=== PATIENT | male | born 1980 | race Caucasian/White ===

== ENCOUNTER 2019-04-02 13:59 | Inpatient (IN) ==
[2019-04-02] MEDS ORDERED: TYLENOL PO ONE (14:28)
[2019-04-02] MEDS ORDERED: ZOFRAN ODT PO ONE (14:28)
[2019-04-02] MEDS ORDERED: MOTRIN PO ONE (14:28)
[2019-04-02 14:37] LABS: INFLUENZA A NEGATIVE (NEGATIVE); INFLUENZA B NEGATIVE (NEGATIVE)
--- NOTE | 2019-04-02 14:52 | PROVIDER DOCUMENTATION ---
HPI-General Adult - General Chief Complaint: Fever Stated Complaint: FEVER Time Seen by Provider: 04/02/19 14:19 Source: patient Allergies/Adverse Reactions: Patient Allergies Allergy/AdvReac Type Severity Reaction Status Date / Time No Known Allergies Allergy Verified 04/02/19 14:05 Home Medications: Home Medication List Medication Instructions Recorded Confirmed Last Taken Type Sertraline [Zoloft] 50 mg PO DAILY 04/02/19 04/02/19 Unknown History - History of Present Illness -Gen Adult Nature of Presenting Problems: Patient is a 38 yowm who complains of fever and chills that began this morning, as well as a sore throat and productive cough with clear sputum x 1 month. He has also had n/v/d. States he was seen here recently for etoh detox/withdrawal and prescribed Librium. States he took his last dose yesterday. Also recently treated for right otitis media, states he no longer has ear pain. Denies any other complaints. Pt is non-toxic in appearance. Review of Systems - Adult - REVIEW OF SYSTEMS - ADULT Constitutional: reports: see HPI, chills, fever Eyes: reports: no symptoms reported Ears, Nose, Mouth & Throat: reports: see HPI Cardiovascular: reports: no symptoms reported Respiratory: reports: see HPI Gastrointestinal: reports: see HPI Genitourinary: reports: no symptoms reported Musculoskeletal: reports: no symptoms reported Integumentary: reports: no symptoms reported Neurological: reports: no symptoms reported Psychiatric: reports: no symptoms reported Endocrine: reports: no symptoms reported Hematologic/Lymphatic: reports: no symptoms reported Allergic/Immunologic: reports: no symptoms reported All Other Systems: Reviewed and Negative Past History - Adult - PAST MEDICAL HISTORY-ADULT Review of Records: reports: Nursing Assessment Review, Medications Reviewed Major Childhood Illnesses: reports: denies history Cardiovascular: reports: denies history Respiratory: reports: denies history Gastrointestinal: reports: liver disease, pancreatitis Obstetrical/Gynecological: reports: denies history Genitourinary: reports: denies history Musculoskeletal: reports: denies history Neurological: reports: denies history Psychiatric: reports: depression Endocrine/Immune: reports: denies history Other Conditions: reports: denies history - PRIOR SURGERIES/PROCEDURES Surgical/Procedure History: reports: recent surgery - PRIOR HOSPITALIZATIONS Prior Hospitalizations: reports: for similar symptoms - IMMUNIZATION STATUS Childhood Immunizations: See Nurse Assessment Flu Vaccine: See Nurse Assessment - FAMILY HISTORY Family History: reviewed, not pertinent - SOCIAL HISTORY Smoking: cigarettes, greater than 1 pack/day Physical Exam-General - PHYSICAL EXAM-ADULT Initial Vital Signs Reviewed: Yes - CONSTITUTIONAL General Appearance: alert, no apparent distress. negative: lethargic, slow to respond - EYES Eyes: PERRL/EOMI, pink conjunctivae. negative: sclera injected, scleral icterus, sunken eyes - HEAD, EARS, NOSE, MOUTH & THROAT HENMT: normocephalic/atraumatic, moist mucous membranes, normal ENT inspection, TMs normal, pharyngeal erythema. negative: tonsillar exudate - NECK Neck: non-tender, full range of motion, supple, normal inspection, lymphadenopathy (bilateral anterior cervical- mild) - RESPIRATORY Respiratory: chest non-tender, lungs clear, normal breath sounds, no pleuratic chest pain, no respiratory distress, no accessory muscle use - CARDIOVASCULAR Cardiovascular: normal peripheral pulses, regular rate, rhythm, no edema, no gallop, no murmur, tachycardia - GASTROINTESTINAL (ABDOMEN) Abdominal Exam: normal bowel sounds, non tender, soft. negative: distended, guarding, rigid, rebound, tenderness, hernia, mass - MUSCULOSKELETAL Back Exam: normal inspection, no CVA tenderness Extremity: normal range of motion, non-tender, normal gait, normal inspection - SKIN Integumentary: normal color, warm/dry. negative: cyanosis, diaphoresis, jaundice, mottled, pallor - NEUROLOGIC Neurologic: grossly normal, no motor/sensory deficits - PSYCHIATRIC Psych/Mental Status: normal mood/affect, normal thought content, normal thought process, oriented x 3 Progress - PLAN OF CARE/RESULTS Progress/Plan/Lab Results: Vital Signs - 8 hr 04/02/19 14:01 Temperature 102.3 F H Pulse Rate 144 H Respiratory Rate 18 Blood Pressure 128/84 O2 Sat by Pulse Oximetry 97 Laboratory Results - last 24 hr 04/02/19 04/02/19 14:08 14:08 Influenza A (Rapid) NEGATIVE Influenza B (Rapid) NEGATIVE Group A Strep Rapid NEGATIVE Orders Category Date Time Status CHEST-2 VIEWS [RAD] Stat Exams 04/02/19 14:40 Ordered BLOOD CULTURE [BLDCUL] Stat Lab 04/02/19 14:40 Uncollected CBC WITH DIFF [HEME] Stat Lab 04/02/19 14:39 Ordered COMPREHENSIVE METABOLIC PANEL [CHEM] Stat Lab 04/02/19 14:[address] Stat Lab 04/02/19 14:[address] Stat Lab 04/02/19 14:08 Completed UA NIMS W/REFLEX CULT [URINALYSIS] Stat Lab 04/02/19 14:40 Uncollected 0.9% Sodium Chloride Inj [Ns] 1,000 ml Med 04/02/19 14:40 Active IV 999 mls/hr Acetaminophen [Tylenol] Med 04/02/19 14:28 Discontinued 1,000 mg PO NOW ONE Ibuprofen [Motrin] Med 04/02/19 14:28 Discontinued 800 mg PO NOW ONE Ondansetron Odt [Zofran Odt] Med 04/02/19 14:28 Discontinued 4 mg PO NOW ONE EKG [EKG] Stat Ther 04/02/19 14:40 Ordered Result Diagrams: 04/02/19 14:57 04/02/19 14:57 - REASSESSMENT Reassessment #1 Time Reassessed: 16:32 Status: other (Admitting HPS paged.) Reassessment #2 Time Reassessed: 16:37 Status: other (HR 120 after 2L IVF. Pt in agreement with admission plan.) - EKG 1 Time of EKG reading by physician:: 14:55 EKG Read and Signed by:: Maryana Franklin EKG Interpretation (*Must complete 3 of following elements*): Abnormal Rate: 130 Rhythm: sinus tachycardia QRS: normal ST Wave: normal - XRAY 1 XRAY Study: Chest ([facility] - [address] [facility] [address] [place] [id number] [facility] - [address] [id number] Department of Imaging Patient: NAVA LINDSEYDM Date: 04/02/19MR#: [id number] : 1980ADM Status: REG [facility]#: [id number] Age/Sex: 38/MRoom/Bed: Loc: P.ED Ordering Physician: Alexei Neal Family Physician: None,PCP Reason for Procedure: cough, fever, tachycardia Signed EXAM: CHEST-2 VIEWS HISTORY: cough, fever, tachycardia TECHNIQUE: Two views COMPARISON: 09/12/2016 FINDINGS: The lungs are well expanded. The heart is not enlarged. The vessels are not distended. There are no infiltrates. No pleural effusions. IMPRESSION: No pneumonia Electronically signed by Yair Gonzalez 04/02/2019 3:0 8 PM 04/02/19 1508 Interpreting Physician: Yair Gonzalez MD Dictated Date/Time: 04/02/19 1508 cc: Alexei Neal; None,PCP) - CONSULTS/PCP/HOSPITALIST Notification #1 *Consult/PCP/Hospitalist*: Dr. Pierson Time Discussed: 16:36 Reason/Comments: admission- leukocytosis,URI,n/v/d Consult Disposition: Admit Departure - Departure Date of Disposition Decision: 04/02/19 Time of Disposition Decision: 16:36 DIAGNOSIS: Nausea and vomiting Qualifiers: Vomiting type: unspecified Vomiting Intractability: non-intractable Qualified Code(s): R11.2 - Nausea with vomiting, unspecified Leukocytosis Qualifiers: Leukocytosis type: unspecified Qualified Code(s): D72.829 - Elevated white blood cell count, unspecified URI (upper respiratory infection) Qualifiers: URI type: unspecified URI Qualified Code(s): J06.9 - Acute upper respiratory infection, unspecified Disposition: ADMITTED INPATIENT 09 Certified Medical Emergency: Emergent Condition: Stable Referrals and Follow-Ups: None,PCP [Primary Care Provider] - - Critical Care Note This patient required my direct & personal management of CC.: No Attestation - Physician/ MARIA INES Attestation Patient care was provided by Advanced Practice Provider:: Yes Advanced Practice Provider:: Alexei Neal Advanced Practice Provider documentation review:: The Mid-level provider documentation, treatment plan and medical decision making was reviewed by the physician who agrees with all treatment and medical decision making by the [facility]. The physician spent face to face time with patient:: No Advanced Practice Provider documentation review:: Supervising physician onsite and consulted in the evaluation and care of this patient. The physician did not have a face to face encounter with the patient.
[2019-04-02 15:08] LABS: BASO# 0.01 X1000 (0.0-0.2); EOS# 0.01 X1000 (0.0-0.7); HEMATOCRIT 34.7 % (42.0-52.0); HEMOGLOBIN 11.3 g/dL (14.0-18.0); IMM GRAN# 0.07 X1000 (0.0-0.04); IMM GRAN% 0.3 % (0.0-0.5); LYMPH# 0.77 X1000 (1.2-3.4); LYMPH% 3.7 % (20.5-51.1); MCH 33.7 PG (27-31); MCHC 32.6 g/dL (33-37); MCV 103.6 FL (81-99); MONO# 2.22 X1000 (0.11-0.59); MONO% 10.5 % (1.7-9.3); MPV 8.8 FL (7.4-10.4); NEUT# 17.98 X1000 (1.4-6.5); NEUT% 85.5 % (42.2-75.2); PLT 332 X1000 (130-400); RBC 3.35 XMIL (4.7-6.1); RDW 12.9 % (11.5-14.5); WBC 21.06 X1000 (4.8-10.8)
--- NOTE | 2019-04-02 15:10 | Diag Imaging Result Doc PS360 ---
EXAM: CHEST-2 VIEWS HISTORY: cough, fever, tachycardia TECHNIQUE: Two views COMPARISON: 09/12/2016 FINDINGS: The lungs are well expanded. The heart is not enlarged. The vessels are not distended. There are no infiltrates. No pleural effusions. IMPRESSION: No pneumonia Electronically signed by Yair Gonzalez 04/02/2019 3:08 PM
[2019-04-02] MEDS ORDERED: NS 1,000 ML IV ONE (15:15)
--- NOTE | 2019-04-02 15:17 | EKG Report ---
Test Performed on : 04/02/2019 2:53:06 PM Test Reason : tachycardia Blood Pressure : / mmHG Vent. Rate : 130 BPM Atrial Rate : 130 BPM P-R Int : 138 ms QRS Dur : 068 ms QT Int : 276 ms P-R-T Axes : 033 025 014 degrees QTc Int : 406 ms Sinus tachycardia. Otherwise normal ECG When compared with ECG of 12-SEP-2016 05:43, Vent. rate has increased BY 60 BPM Non-specific change in ST segment in Anterior leads Nonspecific T wave abnormality now evident in Inferior leads T wave amplitude has decreased in Anterolateral leads Unconfirmed Result
[2019-04-02 15:19] LABS: URINE SOURCE CLEAN CATCH
[2019-04-02] MEDS: NS 1,000 ML IV ONE (15:26)
[2019-04-02 15:27] LABS: BILIRUBIN URINE NEGATIVE (NEGATIVE); BLOOD URINE NEGATIVE (NEGATIVE); COLOR YELLOW; GLUCOSE URINE NEGATIVE (NEGATIVE); KETONE URINE TRACE mg/dL (NEGATIVE); LEUKOCYTES URINE NEGATIVE (NEGATIVE); NITRITE URINE NEGATIVE (NEGATIVE); PROTEIN URINE 30 mg/dL (NEGATIVE); SP GRAVITY URINE 1.027; TURBIDITY URINE CLEAR (CLEAR); UROBILINOGEN URINE 3 mg/dL (NORMAL)
[2019-04-02 15:29] LABS: UR EPITHELIAL CELLS <10 /HPF (<10); URINE BACTERIA NEGATIVE /HPF; URINE RBC <10 /HPF (<10); URINE WBC <10 /HPF (<10)
[2019-04-02 15:35] LABS: ESTIMATED GFR > 60
[2019-04-02 15:39] LABS: UR AMPHETAMINES QUAL NONE DETECTED (NONE DETECT); UR BARBITUATES QUAL NONE DETECTED (NONE DETECT); UR BENZODIAZEPIN QUAL PRESUMPTIVE POSITIVE (NONE DETECT); UR CANNABINOIDS QUAL NONE DETECTED (NONE DETECT); UR COCAINE QUAL NONE DETECTED (NONE DETECT); UR METHADONE QUAL NONE DETECTED (NONE DETECT); UR METHAMPHETAMINE QUAL NONE DETECTED (NONE DETECT); UR OPIATES QUAL NONE DETECTED (NONE DETECT); UR OXYCODONE QUAL NONE DETECTED (NONE DETECT); UR PCP QUAL NONE DETECTED (NONE DETECT); UR PROPOXYPHENE QUAL NONE DETECTED (NONE DETECT); UR TCA QUAL NONE DETECTED (NONE DETECT)
[2019-04-02 15:41] LABS: INR 0.9; PROTIME 12.6 Seconds (11.0-16.0)
[2019-04-02 15:45] LABS: AGAP 15; ALBUMIN 4.6 g/dL (3.5-5.0); ALKALINE PHOSPHATASE 161 U/L (32-122); BUN 8 mg/dL (8-22); CALCIUM 10.1 mg/dL (8.8-10.2); CHLORIDE 94 mmol/L (98-107); COSMO 261; CREATININE 0.6 mg/dL (0.7-1.2); GLUCOSE 132 mg/dL (70-104); GOT 155 U/L (10-34); GPT 123 U/L (10-44); LIPASE 6 U/L (13-60); POTASSIUM 3.9 mmol/L (3.5-5.1); SODIUM 130 mmol/L (136-145); TCO2 21 mmol/L (25-35)
[2019-04-02 16:07] LABS: MAGNESIUM 1.4 mg/dL (1.5-2.7)
[2019-04-02] MEDS ORDERED: NICODERM PATCH TD ONE (16:32)
[2019-04-02] MEDS ORDERED: ROCEPHIN 1 GM in NS 50 ML IV ONE (16:32)
[2019-04-02] MEDS: NS 1,000 ML IV SCH (17:57)
[2019-04-02] MEDS ORDERED: ZOFRAN IV PRN (18:16)
[2019-04-02] MEDS ORDERED: MAGNESIUM SULFATE 2 GM/S.W.I. 2 GM/50 ML IVPB IV ONE (18:16)
[2019-04-02] MEDS: TYLENOL PO PRN (18:56)
--- NOTE | 2019-04-02 19:00 | HISTORY AND PHYSICAL ---
PRIMARY CARE PHYSICIAN: Listed as none. CHIEF COMPLAINT: Of fever, chills, sore throat, body aches, productive cough and nausea, vomiting, diarrhea that began acutely onset this morning and progressively worsened throughout the day. HISTORY OF PRESENTING ILLNESS: This is a 38-year-old male who presents to [facility] ER with complaints of a subjective fever, chills, sore throat, body aches, productive cough, nausea, vomiting, and diarrhea that began acutely this morning and has progressively worsened. States he was recently treated for ETOH withdrawal as he quit drinking on . He was seen in the ER here at [facility] and placed on a Librium taper and has completed that. Prior to that, he was a half a gallon a day drinker of vodka. He also states that he was recently treated for a right otitis media. Took all the antibiotics for that and has not had any further problems from his ear. When he arrived, he had a fever of 102.3, heart rate of 144, white blood cell count of 21.06. Sodium was 130. AST of 155, ALT 123, alkaline phosphatase 161. Plasma lactate was normal at 1.8. Influenza A and B and group A strep were all negative. His chest x-ray showed no pneumonia. Urinalysis was also negative, but he will be admitted for further evaluation and treatment. We are going to also check a CT of the abdomen and pelvis and thorax now. PAST MEDICAL HISTORY: Of pancreatitis, liver disease, anxiety, ETOH abuse. PAST SURGICAL HISTORY: None. FAMILY HISTORY: Reviewed and noncontributory. SOCIAL HISTORY: He currently lives alone. He smokes a pack of cigarettes a day and has done so for the past 10+ years. He was a half a gallon a day drinker of vodka up until , which was about 10 days ago at this point. He was seen in the ER for EtOH withdrawal and given Librium, completed that and has had no further issues with withdrawal and denied any illicit drug use. ALLERGIES: He has no known drug allergies. HOME MEDICATIONS: Zoloft 50 mg p.o. daily. LABORATORY DATA: Showed a white blood cell count of 21.06, hemoglobin 11.3, hematocrit 34.7, platelets 332,000. PT and INR of 12.6 and 0.90. Sodium 130, potassium 3.9, chloride 94, CO2 21, BUN of 8, creatinine 0.6, glucose 132, magnesium 1.4, AST 155, ALT 123, alkaline phosphatase 161. Plasma lactate was 1.8. Urinalysis was negative. Urine drug screen was presumptive positive for benzodiazepines. Influenza A and B and group A strep were all negative. Chest x-ray showed no pneumonia. EKG showed sinus tachycardia at 130. REVIEW OF SYSTEMS: He had a subjective fever, chills, sore throat, body aches, productive cough, nausea, vomiting, and diarrhea. Denied any chest pain, shortness of breath, abdominal pain, constipation, burning or hurting with urination. PHYSICAL EXAMINATION: VITAL SIGNS: On arrival he had a temperature of 102.3 degrees, pulse of 144, respirations 18, blood pressure 128/84, saturating 97% on room air. GENERAL: This is a 38-year-old male who is lying in the bed and answers questions appropriately. HEENT: Normocephalic, atraumatic. Normal ENT inspection. Oropharynx and nares are clear. EYES: Pupils are equal, round, reactive to light and accommodation. Extraocular movements are intact. NECK: Normal inspection, normal range of motion. LUNGS: With decreased breath sounds bilaterally. Equal lung expansion. Chest wall movement noted. HEART: Irregular rate and rhythm as he is still noted to be tachycardic in the 120s, but no murmurs rubs or gallops. ABDOMEN: Soft, nontender, nondistended. Bowel sounds are present x4 quadrants. MUSCULOSKELETAL: He had 5/5 strength x4 extremities. NEUROLOGICAL: The cranial nerves 2-12 appear grossly intact. ASSESSMENT: 1. Sepsis. 2. Fever. 3. Leukocytosis. 4. Hyponatremia. 5. Hypomagnesemia. 6. Elevated liver function tests. 7. Tobacco abuse. 8. ETOH abuse. Quit about 10 days ago and has gone through his withdrawals and Librium taper. PLAN: He will be admitted to the medical unit placed on telemetry, regular diet we are going to check a CT of the abdomen, pelvis and thorax. Normal saline at 125 mL an hour, Rocephin 1 gram IV q.24, neuro checks q.4 hours for 24 hours. Do serial plasma lactate. Blood cultures x2 are pending. We will give him magnesium sulfate 2 g IV now. Recheck a CBC, BMP and a magnesium level in the a.m. Further orders after seen by attending. Dictated by PACO Banda for David Pierson MD cc: PACO Banda MD
--- NOTE | 2019-04-02 19:01 | PROGRESS NOTE ---
DATE: 04/02/2019 SUBJECTIVE: The patient has no major complaints. Chief complaint was nausea, vomiting, and fever. He has recently been treated for otitis media. He has recently been treated for alcohol withdrawal. Today, he came in with a fever up to 102.3, heart rate in the 140s. He still has some significant sinus tachycardia. Really no focal symptoms, except for cough. He had some flank pain and he had some abdominal discomfort. OBJECTIVE: Exam is really benign. Pulmonary: Some faint rales. Abdomen: Soft, nontender, nondistended. ASSESSMENT AND PLAN: So, we will treat empirically. We are going to CT his chest, abdomen, and pelvis, and see if there is anything else that could be contributing to these issues. Sputum, blood, urine cultures will be obtained. He has been empirically placed on Rocephin. We have ruled out the flu. We will follow up on his CT scans. cc: David Pierson MD
--- NOTE | 2019-04-02 20:07 | Diag Imaging Result Doc PS360 ---
EXAM: CT THORAX W/CONTRAST INDICATION: pneumonia TECHNIQUE: This exam was performed using automated exposure control, adjustment of mA or kV according to patient size, and/or use of iterative reconstruction technique. COMPARISON: None. FINDINGS: There is minimal dependent atelectasis bilaterally, predominantly at the lung bases. There is a tiny calcified granuloma at the anterior right lung base. The lungs are clear, otherwise. No airspace consolidations are identified. There is no pleural fluid collection and no pneumothorax. There is no cardiomegaly and there is no evidence of significant mediastinal or hilar lymphadenopathy. There are a few small calcified subcarinal lymph nodes indicating prior granulomatous disease. There is no evidence of acute osseous abnormality. IMPRESSION: Mild bilateral dependent atelectasis. No evidence of pneumonia or acute pathology, otherwise. Electronically signed by Jean Ramos 04/02/2019 8:05 PM
--- NOTE | 2019-04-02 20:15 | Diag Imaging Result Doc PS360 ---
EXAM: CT ABD/PELVIS W/PO AND IV CON INDICATION: weight loss, cachexia, dysphagia TECHNIQUE: This exam was performed using automated exposure control, adjustment of mA or kV according to patient size, and/or use of iterative reconstruction technique. COMPARISON: None. FINDINGS: There is mild nonspecific intrahepatic periportal edema. There is questionable minimal hepatic steatosis. The liver is enlarged measuring up to 22.7 cm craniocaudally. There is trace pericholecystic fluid but there is no definite gallbladder wall thickening. The spleen, pancreas, adrenal glands, and kidneys are unremarkable. The urinary bladder is largely nondistended and is unremarkable, otherwise. There is wall thickening involving a majority of the colon sparing only the distal sigmoid colon. It is worst at the ascending colon and proximal transverse colon. This is suggestive of colitis. Consider infectious and inflammatory etiologies. No small bowel wall thickening is appreciated. The stomach is grossly unremarkable. There is no evidence of acute osseous abnormality. IMPRESSION: 1.Wall thickening involving practically the entire colon suggesting colitis. Consider inflammatory and infectious etiologies. 2.Mild nonspecific intrahepatic periportal edema, hepatomegaly, and questionable mild hepatic steatosis. 3.Trace pericholecystic fluid that may be secondary to the adjacent periportal edema. No gallbladder wall thickening is appreciated. Please correlate clinically. Electronically signed by Jean Ramos 04/02/2019 8:13 PM
[2019-04-02] MEDS ORDERED: LEVAQUIN 500 MG/D5W 500 MG/100 ML IVPB IV SCH (20:45)
[2019-04-02 21:16] LABS: OCCULT BLOOD 1 NEGATIVE (NEGATIVE)
[2019-04-02] MEDS ORDERED: ELAVIL PO SCH (22:15)
[2019-04-02] MEDS ORDERED: MORPHINE IV PRN (22:16)
[2019-04-02] MEDS ORDERED: LAMICTAL PO PRN (22:16)
[2019-04-02] MEDS: NICODERM PATCH TD PRN (22:30)
[2019-04-02] MEDS: FLAGYL 500 MG/NS 500 MG/100 ML IVPB IV SCH (22:30)
[2019-04-02] MEDS: LOMOTIL PO PRN (23:34)
[2019-04-03] MEDS: FLAGYL 500 MG/NS 500 MG/100 ML IVPB IV SCH ×4 (02:20→20:10)
[2019-04-03] MEDS: NS 1,000 ML IV SCH ×3 (05:48→14:29)
[2019-04-03] MEDS: LOMOTIL PO PRN ×3 (06:05→21:04)
[2019-04-03 06:41] LABS: BASO# 0.02 X1000 (0.0-0.2); BASO% 0.1 % (0.0-0.8); EOS# 0.11 X1000 (0.0-0.7); EOS% 0.5 % (0.0-10.0); HEMATOCRIT 29.6 % (42.0-52.0); HEMOGLOBIN 9.5 g/dL (14.0-18.0); IMM GRAN% 0.4 % (0.0-0.5); LYMPH# 2.01 X1000 (1.2-3.4); LYMPH% 8.7 % (20.5-51.1); MCH 33.3 PG (27-31); MCHC 32.1 g/dL (33-37); MCV 103.9 FL (81-99); MONO# 1.84 X1000 (0.11-0.59); MONO% 7.9 % (1.7-9.3); MPV 9.1 FL (7.4-10.4); NEUT# 19.14 X1000 (1.4-6.5); NEUT% 82.4 % (42.2-75.2); PLT 307 X1000 (130-400); RBC 2.85 XMIL (4.7-6.1); RDW 12.9 % (11.5-14.5); WBC 23.22 X1000 (4.8-10.8)
[2019-04-03 06:56] LABS: AGAP 11; BUN 7 mg/dL (8-22); CALCIUM 8.4 mg/dL (8.8-10.2); CHLORIDE 106 mmol/L (98-107); COSMO 270; CREATININE 0.6 mg/dL (0.7-1.2); ESTIMATED GFR > 60; GLUCOSE 102 mg/dL (70-104); SODIUM 136 mmol/L (136-145); TCO2 19 mmol/L (25-35)
[2019-04-03 07:32] LABS: BANDS 2 % (0-1); LYMPHS 10 % (21-51); MONO 8 % (1-9); SEGS 80 % (42-75)
[2019-04-03] MEDS: TYLENOL PO PRN (08:54)
[2019-04-03] MEDS: ZOLOFT PO SCH (08:54)
[2019-04-03] MEDS ORDERED: NS 1,000 ML IV ONE (11:26)
[2019-04-03] MEDS ORDERED: MORPHINE IV PRN (12:57)
--- NOTE | 2019-04-03 13:05 | EKG Report ---
Test Performed on : 04/03/2019 1:08:43 PM Test Reason : Sinus tach Blood Pressure : / mmHG Vent. Rate : 121 BPM Atrial Rate : 133 BPM P-R Int : 000 ms QRS Dur : 078 ms QT Int : 312 ms P-R-T Axes : 000 023 -09 degrees QTc Int : 443 ms Atrial fibrillation. with rapid ventricular response. Abnormal ECG When compared with ECG of 02-APR-2019 14:53, (Unconfirmed) Atrial fibrillation. has replaced Sinus rhythm. Confirmed by Joel Martinez MD ([id number]) on 04/09/2019 1:48:51 AM
[2019-04-03] MEDS ORDERED: CARDIZEM IV ONE (13:10)
--- NOTE | 2019-04-03 14:26 | PROGRESS NOTE ---
DATE: 04/03/2019 SUBJECTIVE: The patient has no major complaints except for diarrhea, diffuse abdominal pain, just multiple issues. He has been persistently tachycardic today and it looks like he has developed atrial fibrillation for atrial flutter with rapid ventricular response. OBJECTIVE: Vital signs: Blood pressure is 91/65, heart rate of 120, respiratory rate of 20, temperature 98.6 degrees, 98% on room air. Cardiovascular: He is tachycardic, irregularly irregular. Pulmonary: Bilateral breath sounds clear to auscultation. Gastrointestinal: Soft, distended. Bowel sounds hyperactive. LABORATORY DATA: White count is up to 23,000, hemoglobin and hematocrit 9 and 29, MCV of 103, platelets of 307,000. Basic looked okay. Clostridium difficile was positive for the toxin. PROBLEM LIST: 1. Clostridium difficile colitis. He is on Flagyl and vancomycin. Will probably stop Flagyl soon and just want to make sure he can tolerate something by mouth first. 2. Atrial fibrillation with rapid ventricular response. It is probably reactive. His potassium is 4 and his magnesium is 2, so I am not sure if he has got an alcoholic heart or what is going on there, but in any case, we will continue treatment and follow closely. Get an echocardiogram. Check thyroid function. Keep his electrolytes stable. 3. History of alcohol abuse. He seems to be doing okay from that standpoint. 4. History of tobacco abuse. He is on a NicoDerm patch. We will continue to monitor. 5. Disposition. If he tolerates the p.o. Cardizem and heart rate is under control, I think he can stay here. Otherwise, we may have to transfer him but I think this is Clostridium difficile colitis associated with the recent antibiotics he was given for otitis media. He has colitis involving his entire colon, so I think that is what is going on here. His liver has some minimal hepatic steatosis so we will continue to monitor closely. TIME SPENT: 35 minute critical care time for atrial fibrillation requiring IV Cardizem for rate control. cc: David Pierson MD
[2019-04-03] MEDS: CARDIZEM PO SCH ×2 (14:29→20:09)
[2019-04-03] MEDS: VANCOCIN PO SCH ×2 (14:29→20:09)
[2019-04-03] MEDS: DILAUDID IV PRN ×2 (14:38→21:03)
[2019-04-03] MEDS ORDERED: ROCEPHIN 1 GM in NS 50 ML IV SCH (16:00)
--- NOTE | 2019-04-03 17:25 | ECHO REPORT ---
ORDER DATE: 04/03/2019 ECHOCARDIOGRAPHIC MEASUREMENTS: 1. Interventricular septum 0.8. 2. Left ventricular posterior wall 1. 3. Diastolic diameter 5. 4. Left atrium 3.1. 5. Aorta 3.6. SUMMARY OF THE 2-DIMENSIONAL FINDINGS: 1. Atrial fibrillation was noted. 2. Aortic valve leaflets are trileaflet. 3. Pulmonic valve was normal. 4. Mitral valve was normal. 5. Tricuspid valve was normal. 6. Normal right ventricular cavity size and function. 7. Normal left ventricular cavity size. Estimated ejection fraction of 60%. There is mild mitral regurgitation. 8. Mild tricuspid regurgitation. Peak velocity across the tricuspid valve was less than 2 m/sec. 9. Peak velocity across the aortic valve less than 2 m/sec. 10. There is no aortic stenosis or regurgitation. 11. There is no pericardial effusion, or obvious intracardiac mass or thrombus seen. cc: MD David Castro MD
[2019-04-03] MEDS: ELAVIL PO SCH (20:09)
[2019-04-03] MEDS: NICODERM PATCH TD PRN (21:04)
[2019-04-04] MEDS: NS 1,000 ML IV SCH ×4 (00:12→17:54)
[2019-04-04] MEDS: DILAUDID IV PRN ×7 (00:13→22:09)
[2019-04-04] MEDS: VANCOCIN PO SCH ×4 (02:19→20:49)
[2019-04-04] MEDS: CARDIZEM PO SCH ×4 (02:19→20:49)
[2019-04-04] MEDS: FLAGYL 500 MG/NS 500 MG/100 ML IVPB IV SCH ×2 (02:20→08:10)
[2019-04-04] MEDS: TYLENOL PO PRN (03:38)
[2019-04-04 06:37] LABS: BASO# 0.01 X1000 (0.0-0.2); BASO% 0.1 % (0.0-0.8); EOS# 0.18 X1000 (0.0-0.7); EOS% 1.3 % (0.0-10.0); HEMATOCRIT 26.7 % (42.0-52.0); HEMOGLOBIN 8.4 g/dL (14.0-18.0); IMM GRAN# 0.03 X1000 (0.0-0.04); IMM GRAN% 0.2 % (0.0-0.5); LYMPH# 2.24 X1000 (1.2-3.4); MCH 33.2 PG (27-31); MCHC 31.5 g/dL (33-37); MCV 105.5 FL (81-99); MONO% 6.4 % (1.7-9.3); MPV 9.6 FL (7.4-10.4); NEUT# 10.67 X1000 (1.4-6.5); PLT 319 X1000 (130-400); RBC 2.53 XMIL (4.7-6.1); WBC 14.03 X1000 (4.8-10.8)
[2019-04-04 06:43] LABS: AGAP 10; ALBUMIN 3.1 g/dL (3.5-5.0); ALKALINE PHOSPHATASE 105 U/L (32-122); BUN 3 mg/dL (8-22); CALCIUM 7.9 mg/dL (8.8-10.2); CHLORIDE 106 mmol/L (98-107); COSMO 265; CREATININE 0.3 mg/dL (0.7-1.2); DIRECT BILIRUBIN < 0.20 mg/dL (0.00-0.20); ESTIMATED GFR > 60; GLUCOSE 98 mg/dL (70-104); GOT 43 U/L (10-34); GPT 53 U/L (10-44); POTASSIUM 3.4 mmol/L (3.5-5.1); SODIUM 134 mmol/L (136-145); TCO2 18 mmol/L (25-35); TOTAL PROTEIN 5.7 g/dL (6.3-8.3)
[2019-04-04] MEDS: ZOLOFT PO SCH (08:11)
[2019-04-04] MEDS ORDERED: KLOR-CON PO ONE (09:29)
--- NOTE | 2019-04-04 14:11 | PROGRESS NOTE ---
DATE: 04/04/2019 SUBJECTIVE: Has no complaint. Potassium 3.48. AST and ALT of 43 and 53. OBJECTIVE: Vital Signs: His blood pressure is 107/73, heart rate 86, respiratory rate of 18, temperature 97.8 degrees. Cardiovascular: Regular rate and rhythm. Pulmonary: Bilateral breath sounds. Clear to auscultation. GI: Was soft, nontender, nondistended. Bowel sounds were positive. Extremity exam: No clubbing or cyanosis. Lymphatic exam: No peripheral edema. Neurological exam: Nonfocal. In any case, patient has stabilized. LABS: White count is 14, hemoglobin and hematocrit 8 and 26, MCV 105. Potassium 3.4. Folate is a little low 8.4. PROBLEM LIST: 1. Clostridium difficile colitis. He is on Flagyl and vancomycin. I think we can probably stop the Flagyl and continue vancomycin alone. 2. Atrial fibrillation with rapid ventricular response. He spontaneously converted. I think this was probably reactive. His echocardiogram showed ejection fraction of 60%, really otherwise unremarkable. I think his thyroid stimulating hormone we have not analyzed, so we will check that tomorrow, and we will switch him to Cardizem daily. Continue an aspirin as well. His CHADS score is very low. DISPOSITION: he is still having very frequent bowel movements, up to 20 a day. I do not think they are all large, but in any case plan will be to watch him until bowel movements improve a little bit better. cc: David Pierson MD
[2019-04-04] MEDS: FOLIC ACID 1 MG in NS 50 ML IV SCH (15:14)
[2019-04-04] MEDS: ELAVIL PO SCH (20:49)
[2019-04-05] MEDS: DILAUDID IV PRN ×7 (00:57→23:41)
[2019-04-05] MEDS: NS 1,000 ML IV SCH ×2 (00:58→09:31)
[2019-04-05] MEDS: VANCOCIN PO SCH ×4 (01:00→20:26)
[2019-04-05 05:54] LABS: BASO# 0.02 X1000 (0.0-0.2); BASO% 0.2 % (0.0-0.8); EOS# 0.19 X1000 (0.0-0.7); HEMATOCRIT 29.5 % (42.0-52.0); HEMOGLOBIN 9.3 g/dL (14.0-18.0); IMM GRAN# 0.02 X1000 (0.0-0.04); IMM GRAN% 0.2 % (0.0-0.5); LYMPH# 1.97 X1000 (1.2-3.4); LYMPH% 20.7 % (20.5-51.1); MCHC 31.5 g/dL (33-37); MCV 104.6 FL (81-99); MONO# 0.75 X1000 (0.11-0.59); MONO% 7.9 % (1.7-9.3); MPV 9.2 FL (7.4-10.4); NEUT# 6.55 X1000 (1.4-6.5); PLT 424 X1000 (130-400); RBC 2.82 XMIL (4.7-6.1); RDW 12.8 % (11.5-14.5)
[2019-04-05 06:14] LABS: AGAP 9; BUN 2 mg/dL (8-22); CALCIUM 8.9 mg/dL (8.8-10.2); CHLORIDE 104 mmol/L (98-107); COSMO 265; CREATININE 0.3 mg/dL (0.7-1.2); ESTIMATED GFR > 60; GLUCOSE 80 mg/dL (70-104); SODIUM 135 mmol/L (136-145); TCO2 22 mmol/L (25-35)
[2019-04-05] MEDS: TYLENOL PO PRN (07:54)
[2019-04-05] MEDS: CARDIZEM CD PO SCH ×2 (07:55→09:31)
[2019-04-05] MEDS: ZOLOFT PO SCH ×2 (07:55→09:31)
[2019-04-05] MEDS ORDERED: FLU VACCINE IM ONE (10:00)
[2019-04-05] MEDS: FOLIC ACID 1 MG in NS 50 ML IV SCH (14:57)
[2019-04-05] MEDS ORDERED: LASIX PO ONE (17:42)
--- NOTE | 2019-04-05 18:37 | PROGRESS NOTE ---
DATE: 04/05/2019 SUBJECTIVE: Patient has no major complaints. OBJECTIVE: Blood pressure 123/90, heart rate of 77, respiratory rate of 16, temperature 97.9 degrees, 98% on room air.Cardiovascular: Regular rate and rhythm. Pulmonary: Bilateral breath sounds clear to auscultation. GI: Soft, nontender, nondistended. Bowel sounds are positive. LABORATORY DATA: White count is 9, hemoglobin and hematocrit 9 and 29, platelets 424,000. Basic was normal. TSH 4.21. PROBLEM LIST: 1. C. difficile colitis. He is on vancomycin and is improving. 2. Atrial fibrillation with RVR, but now he is stable on Cardizem. We will analyze his other medications. 3. Folate acid deficiency. Will continue to follow. He is getting a little volume overloaded. I am going to stop his fluids and put him on some Lasix. DISPOSITION: I anticipate discharge hopefully in the next one to two days. cc: David Pierson MD
[2019-04-05] MEDS: ELAVIL PO SCH (20:26)
[2019-04-06] MEDS: DILAUDID IV PRN ×6 (04:01→22:27)
[2019-04-06] MEDS: VANCOCIN PO SCH ×3 (04:02→16:07)
[2019-04-06] MEDS: FOLIC ACID PO SCH (09:58)
[2019-04-06] MEDS: ZOLOFT PO SCH (09:58)
[2019-04-06] MEDS: LASIX PO SCH (09:58)
[2019-04-06] MEDS: CARDIZEM CD PO SCH (09:58)
--- NOTE | 2019-04-06 19:33 | PROGRESS NOTE ---
DATE: 04/06/2019 SUBJECTIVE: Patient is still having 4 or 5 bowel movements today. OBJECTIVE: Vital signs: Blood pressure 116/91, heart rate 84, respiratory rate 20, temperature 98.2 degrees, 100% on room air. Cardiovascular: Regular rate and rhythm. Pulmonary: Bilateral breath sounds clear to auscultation. Gastrointestinal: Soft, nontender, nondistended. Bowel sounds are positive. PROBLEM LIST: 1. Clostridium difficile colitis. He seems to be doing okay, improving on vancomycin. Continue to follow. 2. Atrial fibrillation with rapid ventricular response, is stable on Cardizem. Echocardiogram looks okay. 3. Folic acid deficiency. 4. History of polysubstance abuse. He is going to be going to outpatient detox program. cc: David Pierson MD
[2019-04-06] MEDS: ELAVIL PO SCH (22:27)
[2019-04-07] MEDS: DILAUDID IV PRN ×2 (01:42→04:45)
[2019-04-07] MEDS: VANCOCIN PO SCH ×5 (01:43→22:23)
[2019-04-07] MEDS: FOLIC ACID PO SCH (09:36)
[2019-04-07] MEDS: ZOLOFT PO SCH (09:36)
[2019-04-07] MEDS: LASIX PO SCH (09:36)
[2019-04-07] MEDS: NORCO-7.5 PO PRN ×2 (09:36→17:48)
[2019-04-07] MEDS: CARDIZEM CD PO SCH (09:36)
--- NOTE | 2019-04-07 21:39 | PROGRESS NOTE ---
DATE: 04/07/2019 SUBJECTIVE: The patient notes that he still feels uncomfortable going home. He lives in a halfway and is afraid he is still contagious. PHYSICAL EXAMINATION: Vital signs: Temperature 98 degrees, pulse 82, respiratory rate 18, BP 108/78. General: Patient is in no current respiratory distress. He appears pleasant. HEENT: Normocephalic. Neck: Supple. Cardiovascular: Regular rate and rhythm. Chest: Clear. Abdomen: Soft, mildly tender. Extremities: Moves all extremities. ASSESSMENT: 1. Atrial fibrillation. Currently stable on Cardizem. 2. Folic acid deficiency. PLAN: He currently still on vancomycin orally. We are going to continue this. We are going to stop IV Dilaudid as he certainly should not be requiring such high doses of IV pain medication at this point. We will continue p.o. [place] only as needed. Hopefully if his Clostridium difficile toxin repeat is negative, he can discharge back to his halfway tomorrow. cc: MD David Brown MD
[2019-04-07] MEDS: ELAVIL PO SCH (22:23)
[2019-04-07] MEDS: TYLENOL PO PRN (22:23)
[2019-04-08] MEDS: VANCOCIN PO SCH ×2 (06:59→07:56)
[2019-04-08 07:49] VITALS: BP 105/79
[2019-04-08] MEDS: FOLIC ACID PO SCH (07:56)
[2019-04-08] MEDS: ZOLOFT PO SCH (07:56)
[2019-04-08] MEDS: CARDIZEM CD PO SCH (07:56)
[2019-04-08] MEDS: NORCO-7.5 PO PRN (07:56)
[2019-04-08] MEDS: LASIX PO SCH (07:56)
--- NOTE | 2019-04-09 12:36 | DISCHARGE SUMMARY ---
ADMISSION DATE: 04/02/2019 DISCHARGE DATE: 04/08/2019 DIAGNOSES: 1. Atrial fibrillation, rate controlled. 2. Folic acid deficiency. 3. Clostridium difficile colitis with a Clostridium difficile toxin positive on 04/02/2019 and negative on 04/07/2019. 4. History of polysubstance abuse in a patient who is going to go into an outpatient detox program. 5. History of alcohol abuse. 6. Hyponatremia, hypomagnesemia, resolved. DIAGNOSTICS: 1. Chest x-ray revealed no pneumonia. 2. CT of the abdomen and pelvis, wall thickening involving practically the entire colon suggesting colitis. Consider inflammatory and infectious etiologies. Nonspecific intrahepatic periportal edema, hepatomegaly, and questionable mild hepatic steatosis. No gallbladder wall thickening. 3. CT of the chest revealed bilateral atelectasis, no evidence of pneumonia. 4. Echocardiogram revealed an ejection fraction of 60% with mild mitral regurgitation. No pericardial effusion or obvious intracardiac mass or thrombus seen. MICROBIOLOGY: 1. Blood cultures revealed no growth after 5 days. 2. Throat culture no group A strep isolated. 3. Ova and parasite concentrate exam revealed none seen. Trichrome stain, none seen. Stool culture revealed no Salmonella, Shigella, Campylobacter, or Escherichia coli. Clostridium difficile toxin was positive on 04/02/2019 and negative 04/07/2019. Stool for occult blood was negative. 4. Influenza A and B are negative. HOSPITAL COURSE: Mr. Harkins presented to the emergency room complaining of chills, sore throat, body aches, with a productive cough and fevers, as well as vomiting and diarrhea. He was found to have colitis and ultimately Clostridium difficile colitis. He was treated with Flagyl and p.o. vancomycin, which he will continue for 5 days. He does have a history of atrial fibrillation. He is in chronic atrial fibrillation. On admission, rates were 120 and 124. We continued his Cardizem. Rates have remained in the 60s to 90s. Echocardiogram as stated above. We did trend electrolytes and treat as appropriate. He was found to have a folate acid deficiency. He was started on folic acid. In regards to his alcohol abuse, he had been without alcohol about 10 days upon coming to the emergency room, as he had been treated in the emergency room for withdrawal on . He took Librium as prescribed, and he has had no withdrawal symptoms. He did have fevers of 101 and 102 on admission. He has been afebrile since. Thankfully, he was able to tolerate a regular diet on the 2nd through today with no further complaints. Diarrhea resolved, and he is ready for discharge. Mr. Harkins lives in shelter and was concerned about going home and exposing the other residents to Clostridium difficile. Thankfully, his repeat Clostridium difficile toxin was negative on 04/07/2019. It is safe for him to be discharged. DISCHARGE VITAL SIGNS: Blood pressure is 105/79 with a heart rate of 75, respirations are 20, temperature is 97.8 degrees with room air saturations 98%. DISCHARGE PHYSICAL EXAMINATION: Cardiovascular: Irregular irregular rate and rhythm. S1 and S2 appreciated. Calves are nontender bilaterally with peripheral pulses palpable x4 extremities. Pulmonary: Breath sounds are clear. No increased work of breathing noted. Chest rise and falls symmetric with respiration. Chest: The chest wall is nontender to palpation. Gastrointestinal: Abdomen is soft, nontender, nondistended with bowel sounds in all 4 quadrants. Neurologic: He is alert and oriented x3. Skin: Warm and dry. DISCHARGE MEDICATIONS: 1. Zoloft 50 mg p.o. daily. 2. Elavil 10 mg p.o. every night at bedtime. 3. Vancomycin 250 mg p.o. every 6 hours x5 days. 4. Cardizem CD 120 mg p.o. daily. 5. Folic acid 1 mg p.o. daily. 6. Lasix 40 mg p.o. daily. FOLLOWUP: He needs to follow up his primary care provider in the next 1 to 2 weeks. He has been instructed to call to be seen sooner or return to the ER for any syncope, dizziness, chest pain, palpitations, any nausea, vomiting, recurring diarrhea, constipation, temperature greater than 101, any black or bloody vomitus or stools, any hematuria, dysuria, frequency urgency, or for any questions or concerns that he may have. DISPOSITION: He is being discharged home in stable condition with family members. TIME SPENT: This is a greater than 30 minute discharge. Dictated by PACO العراقي for Da Sue MD cc: PACO العراقي MD Alexis R. Penot, MD
--- NOTE | 2019-04-09 19:46 | DISCHARGE SUMMARY ---
ADMISSION DATE: 04/02/2019 DISCHARGE DATE: 04/08/2019 ADDENDUM: Patient was seen and examined by myself. Full note dictated and discussed with nurse practitioner. On discharge, patient is awake, alert. He is in no distress. His diarrhea has improved. He does have C. difficile colitis. We are going to continue vancomycin at home. Atrial fibrillation with rapid response is stable and currently rate controlled on Cardizem. Please see the full note. cc: MD David Brown MD
== END 2019-04-08 08:37 | disposition home or self-care (01) | DRG 372 ==
LOC: P.ED 13:59 → P.MEDSURG 17:50 → SUATTDRO 17:50
PROVIDERS: ADMIT Internal Medicine; ATTEND Family Medicine